=== PATIENT | male | born 1965 | race Caucasian/White ===

== ENCOUNTER 2020-09-22 08:16 | Outpatient (REF) | payer OTHER, SELFPAY ==
[2020-09-22 08:44] LABS: MANUAL DIFF FLAG NO
[2020-09-22 09:01] LABS: Estimated Average Glucose 105 mg/dL; Hemoglobin A1c % 5.3 %
[2020-09-22 09:05] LABS: Basophils Absolute Auto 0.1 X10*3/uL (0.0-0.2); Basophils Percent Auto 0.9 % (0-2); Eosinophils Absolute Auto 0.3 X10*3/uL (0.0-0.4); Eosinophils Percent Auto 4.8 % (0-4); Hematocrit 44.9 % (42-52); Hemoglobin 15.4 g/dl (14.0-18.0); Imm Gran Abs Auto 0.05 X10*3/uL (0.00-0.03); Imm Gran Pct Auto 0.9 % (0.0-0.4); Lymphocytes Absolute Auto 1.2 X10*3/uL (1.2-4.9); Lymphocytes Percent Auto 21.3 % (20-40); Mean Corpuscular HGB Conc 34.3 g/dl (31.0-36.0); Mean Corpuscular Hemoglobin 31.1 pg (27.0-33.0); Mean Corpuscular Volume 90.7 fL (80-98); Mean Platelet Volume 9.6 fL (9.4-12.4); Monocytes Absolute Auto 0.7 X10*3/uL (0.1-1.2); Monocytes Percent Auto 12.2 % (2-11); Neutrophils Absolute Auto 3.2 X10*3/uL (2.0-8.3); Neutrophils Percent Auto 59.9 % (45-73); Platelet Count 201 X10*3/uL (160-400); Red Blood Count 4.95 X10*6/uL (4.60-5.80); Red Cell Distribution Width 12.7 % (11.0-16.0); White Blood Count 5.4 X10*3/uL (4.8-10.8)
[2020-09-22 09:09] LABS: Alanine Aminotransferase 21 U/L (0-40); Albumin Level 4.5 g/dL (3.5-5.0); Alkaline Phosphatase 82 U/L (39-117); Anion Gap 14 (12-20); Aspartate Amino Transferase 22 U/L (5-37); Bilirubin Total 0.6 mg/dL (0.0-1.0); Blood Urea Nitrogen 22 mg/dL (9-16); Calcium 9.3 mg/dL (8.4-10.2); Carbon Dioxide 25 mmol/L (22-29); Chloride 102 mmol/L (96-108); Cholesterol 272 mg/dL; Estimated Glomerular Filt Rate > 60; Glucose Fasting 100 mg/dL (60-99); HDL Cholesterol 38 mg/dL; LDL Cholesterol Calculated 185 mg/dl; Potassium 4.4 mmol/l (3.3-5.1); Sodium 137 mmol/L (135-145); Total Protein 7.3 g/dL (6.5-8.0); Triglycerides 246 mg/dL
[2020-09-22 09:18] LABS: Creatinine Urine 129.98 mg/dL; Microalbumin Urine < 5.0 mg/L
[2020-09-22 09:29] LABS: Prostate Specific Antigen Scr 1.78 ng/mL (<0.05-4.0); TSH reflex Free T4 1.25 mIU/mL (0.32-4.0)
== END 2020-09-22 08:17 | disposition home or self-care (01) ==
LOC: HO.LAB 08:16
PROVIDERS: PCP Physician Assistant; Visit Provider Physician Assistant
DX: I10 Essential (primary) hypertension (principal); E66.09 Other obesity due to excess calories; Z12.5 Encounter for screening for malignant neoplasm of prostate; Z68.35 Body mass index [BMI] 35.0-35.9, adult
CPT/HCPCS: 36415; 80053; 80061; 82043; 83036; 84153; 84443; 85025

== ENCOUNTER 2021-01-15 09:44 | Outpatient (REF) | payer OTHER, SELFPAY ==
--- NOTE | ~2021-01-15 | XR_ITS ---
EXAMINATION: XR CHEST CLINICAL INFORMATION: Cough, shortness of breath COMPARISON: None TECHNIQUE: 2 views of the chest were obtained. FINDINGS: There is some subtle airspace opacity lower zone just below hilum and lateral to left cardiac border better appreciated on the frontal view. The remainder of the lungs are clear. The vascularity is normal. The costophrenic sulci are well-defined. The heart is normal in size. The hilar and mediastinal contours are normal. There are mild degenerative changes thoracic spine. XR/XR chest 2V IMPRESSION: Mild left lower zone airspace opacity possibly related to pneumonia. No effusion.
== END 2021-01-15 09:45 | disposition home or self-care (01) ==
LOC: HO.HMGCX 09:44
PROVIDERS: PCP Physician Assistant; Visit Provider Nurse Practitioner Family
DX: R05 Cough (principal)
CPT/HCPCS: 71046

== ENCOUNTER 2021-01-15 09:49 | Outpatient (REF) | payer OTHER, SELFPAY | END 2021-01-15 09:50 | disposition home or self-care (01) | LOC: HO.LAB 09:49 | PROVIDERS: Visit Provider Nurse Practitioner Family | DX: R05 Cough (principal); Z20.822 Contact with and (suspected) exposure to COVID-19 | CPT/HCPCS: 36415; U0003; U0005 ==

== ENCOUNTER 2023-03-07 07:36 | Outpatient (REF) | payer OTHER, SELFPAY ==
--- NOTE | ~2023-03-07 | XR_ITS ---
EXAMINATION: XR KNEE AP STANDING CLINICAL INFORMATION: Primary osteoarthritis of the knees COMPARISON: Right knee x-ray June 2008 TECHNIQUE: AP bilateral standing view of the knees was obtained. FINDINGS: Right: There are postsurgical changes from ACL repair. There is no fracture or dislocation. There is joint space narrowing at the medial lateral femoral tibial joints and osteophyte seen medially. Left: There are postsurgical changes from ACL repair. No acute fracture or dislocation. Well-corticated ossification adjacent to the lateral femoral condyle questionable for old fracture. Varus angulation. Arthritis at the femoral tibial joints with joint space narrowing and osteophyte formation, greatest medially. Slight medial subluxation of the distal femur with respect with respect to the proximal tibia. Question bipartite patella. XR/XR knee standing BI IMPRESSION: Bilateral arthritis, left greater than right. Postsurgical changes from bilateral ACL repair.
--- NOTE | ~2023-03-07 | XR_ITS ---
EXAMINATION: XR LUMBOSACRAL SPINE WITH OBLIQUES CLINICAL INFORMATION: Low back pain COMPARISON: None TECHNIQUE: AP, both oblique, and lateral views of the lumbar spine. Lateral view of the lumbosacral junction. FINDINGS: No fracture or dislocation. Mild curvature of the lumbar sacral spine to the right. Bone alignment is otherwise normal. Mild degenerative disc disease and spondylosis at T12-L1, L1-L2 and L3-L4. Lower lumbar spine facet arthritis. No pars defect is seen. XR/XR lumbar spine 4V min IMPRESSION: Scoliosis and multilevel degenerative changes.
[2023-03-07 09:01] LABS: Hemoglobin 13.9 g/dl (14.0-18.0); Mean Corpuscular HGB Conc 35.6 g/dl (31.0-36.0); Mean Corpuscular Hemoglobin 33.5 pg (27.0-33.0); Mean Platelet Volume 9.3 fL (9.4-12.4); Platelet Count 207 X10*3/uL (160-400); Red Blood Count 4.15 X10*6/uL (4.60-5.80); Red Cell Distribution Width 12.1 % (11.0-16.0); White Blood Count 4.9 X10*3/uL (4.8-10.8)
[2023-03-07 09:51] LABS: Alanine Aminotransferase 25 U/L (0-40); Albumin Level 4.2 g/dL (3.5-5.0); Alkaline Phosphatase 75 U/L (39-117); Anion Gap 13 (12-20); Aspartate Amino Transferase 28 U/L (5-37); Bilirubin Total 1.1 mg/dL (0.0-1.0); Blood Urea Nitrogen 20 mg/dL (9-16); Calcium 9.2 mg/dL (8.4-10.2); Carbon Dioxide 24 mmol/L (22-29); Chloride 105 mmol/L (96-108); Cholesterol 236 mg/dL; Estimated Glomerular Filt Rate > 60; Glucose Fasting 99 mg/dL (60-99); HDL Cholesterol 44 mg/dL; LDL Cholesterol Calculated 141 mg/dl; Sodium 138 mmol/L (135-145); Total Protein 6.6 g/dL (6.5-8.0); Triglycerides 256 mg/dL
[2023-03-07 10:02] LABS: Prostate Specific Antigen Scr 3.35 ng/mL (<0.05-4.0)
[2023-03-07 10:02] LABS: Creatinine Urine 113.09 mg/dL
== END 2023-03-07 07:37 | disposition home or self-care (01) ==
LOC: HO.LAB 07:36
PROVIDERS: PCP Physician Assistant; Visit Provider Physician Assistant
DX: Z12.5 Encounter for screening for malignant neoplasm of prostate (principal); I10 Essential (primary) hypertension; E78.2 Mixed hyperlipidemia; M54.40 Lumbago with sciatica, unspecified side; M17.0 Bilateral primary osteoarthritis of knee
CPT/HCPCS: 36415; 72110; 73565; 80053; 80061; 82043; 84153; 85027

== ENCOUNTER 2023-04-13 10:58 | Outpatient (REF) | payer OTHER, SELFPAY ==
--- NOTE | ~2023-04-13 | XR_ITS ---
EXAMINATION: Knee x-ray CLINICAL INFORMATION: Pain COMPARISON: Previous x-ray February 2023 TECHNIQUE: 2 views of each knee FINDINGS: Left: There are postsurgical changes from ACL repair. No fracture or dislocation. Arthritis at the patellofemoral and femoral tibial joint. Moderate to large effusion. Soft tissue calcification or ossification in the anterior superior soft tissues. Atherosclerotic disease. Right: Postsurgical changes from ACL repair. No fracture or dislocation. Arthritis at the femoral tibial and patellofemoral joints. No significant joint effusion. Atherosclerotic disease. XR/XR knee LT 2V IMPRESSION: Post ACL repair bilaterally. Bilateral arthritis, left greater than right. Left knee joint effusion.
--- NOTE | ~2023-04-13 | XR_ITS ---
EXAMINATION: Knee x-ray CLINICAL INFORMATION: Pain COMPARISON: Previous x-ray February 2023 TECHNIQUE: 2 views of each knee FINDINGS: Left: There are postsurgical changes from ACL repair. No fracture or dislocation. Arthritis at the patellofemoral and femoral tibial joint. Moderate to large effusion. Soft tissue calcification or ossification in the anterior superior soft tissues. Atherosclerotic disease. Right: Postsurgical changes from ACL repair. No fracture or dislocation. Arthritis at the femoral tibial and patellofemoral joints. No significant joint effusion. Atherosclerotic disease. XR/XR knee RT 2V IMPRESSION: Post ACL repair bilaterally. Bilateral arthritis, left greater than right. Left knee joint effusion.
== END 2023-04-13 10:59 | disposition home or self-care (01) ==
LOC: HO.HOSX 10:58
PROVIDERS: Visit Provider Orthopaedic Surgery
DX: M17.0 Bilateral primary osteoarthritis of knee (principal)
CPT/HCPCS: 73560

== ENCOUNTER 2023-10-28 11:40 | Outpatient (AMB) | payer OTHER, SELFPAY ==
--- NOTE | 2023-10-28 11:45 | MHC.PC.OV ---
Vital Signs 10/28/23 11:46 Height 5 ft 6 in Weight 204 lb 2 oz BMI 32.9 BP 172/96 H Blood Pressure Location Lt brachial Position Sitting Respiration 17 Pulse 105 H Pulse Source Pulse Oximeter Pulse Oximetry (%) 98 Oxygen Delivery Method Room Air Intake Visit Reasons: f/u HTN Commissioning Specialist Required: No Accompanied by: Self / Same As Patient Allergies lisinopril Adverse Reaction (Intermediate, Verified 10/28/23 11:53) Sweating Medication List - Last Reconciled 10/28/23 by Rod Paz PA-C acetaminophen ER 650 mg PO Q12H 15 days amlodipine 10 mg PO DAILY 90 days blood pressure test kit-large As directed ibuprofen 800 mg PO TID PRN losartan-hydrochlorothiazide 100-12.5 mg 1 tab PO DAILY 30 days trazodone 100 mg PO DAILY triamcinolone acetonide 0.5% 1 appl topical DAILY 30 days Tobacco use date assessed: 10/28/23 Dental Screening Dental Screen Date: 10/28/23 Did you have a dental visit in the last 12 months?: No Did you have a dental problem in the last 6 months where you did not have access to dental care?: No Was dental information given to patient?: Patient declined HPI f/u HTN HPI Details Patient is a 58-year-old male here today for follow-up visit. Patient has a past medical history significant for hypertension, psoriasis, obesity, anxiety and hyperlipidemia. Concern--> osteoarthritis of the knees. Has been getting cortisone injections in his knees. Has seen [facility] surgeons and [place] and is considering a total knee arthroplasty. .. Hypertension: Blood pressure is been difficult to control, today pressure elevated in office. He does monitor his blood pressure at home at times and reports 130s over 90. He denies any headaches, chest discomfort or dizziness. Plan: Will increase his hydrochlorothiazide dose, also rdered an ultrasound of both his kidneys to evaluate for renal artery stenosis /.. Obesity: Has been able to lose a few lb since last office visit, he does report changing his diet somewhat to reduce salt and carbohydrates. .. . Anxiety: Reports his anxiety has been elevated as of late due to financial issues. He would like to restart Wellbutrin as this has worked for his anxiety in the past.. [facility] Surgical History History of orthopedic surgery Family History Father No problems noted. Mother No problems noted. 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 1. Little interest or pleasure in doing things: not at all 2. Feeling down, depressed, or hopeless: not at all 3. Trouble falling or staying asleep, or sleeping too much: not at all 4. Feeling tired or having little energy: not at all 5. Poor appetite or overeating: not at all 6. Feeling bad about yourself - or that you are a failure or have let yourself or your family down: not at all 7. Trouble concentrating on things, such as reading the newspaper or watching television: not at all 8. Moving or speaking so slowly that other people could have noticed. Or the opposite - being so fidgety or restless that you have been moving around a lot more than usual: not at all 9. Thoughts that you would be better off or of hurting yourself in some way: not at all Total score: 0 Depression Screening Interpretation: Negative Depression Screening Done: Yes 42650 - PHQ-9 Billing: Yes Source: Developed by Drs. Juan Choudhary, Cynthia Huber, Roland Vega and colleagues, with an educational doreen from [employer]. Thrive Questionnaire Date Thrive assessed: 10/28/23 I am a: Patient What is your living situation today?: I have a steady place to live Within the past 12 months, did the food you bought not last and you didn't have the money to get more?: Never true Within the past 12 months, did you worry whether your food would run out before you got money to buy more?: Never true Do you have trouble paying for medicines?: No Do you have trouble getting transportation to medical appointments?: No Do you have trouble paying your heating and electricity bill?: No Do you have trouble taking care of your child, family member or friend?: No Do you have trouble with day-to-day activities such as bathing, preparing meals, shopping, managing finances, etc.?: No Are you currently unemployed and looking for a job?: No Are you interested in more education?: No Please select the resources that you would like help with: None Currently or been in a relationship where the following occur: no concerns reported AUDIT C Alcohol Use Questionnaire (AUDIT-C) 1. How often do you have a drink containing alcohol?: Never Total Score: 0 CHITO-7 AMB Questionnaire CHITO-7 Date CHITO - 7 assessed: 10/28/23 Feeling nervous, anxious, or on edge: 2 = More than half the days Not being able to stop or control worryin = Several days Worrying too much about different things: 2 = More than half the days Trouble relaxin = Several days Being so restless that it is hard to sit still: 0 = Not at all Becoming easily annoyed or irritable: 0 = Not at all Feeling afraid as if something awful might happen: 2 = More than half the days Total CHITO-7 score (0-4 normal; 5-9 mild; 10-14 moderate; 15-21 severe): 8 Source: Developed by Drs. Juan Choudhary, Cynthia Huber, Roland Vega and colleagues, with an educational doreen from [employer]. CHITO-7 Assessment Billing CHITO-7 Assessment Tool: CHITO-7 Assessment 08089 Review of Systems Const Denies headache(s) Eyes Denies loss of vision ENT Denies vertigo, Denies dizziness, Denies headache(s) and Denies sore throat Card Denies chest pain, Denies leg edema and Denies lightheadedness Resp Denies cough, Denies hemoptysis and Denies wheezing GI Denies abdominal pain, Denies melena, Denies constipation, Denies diarrhea and Denies vomiting Denies dysuria, Denies urinary frequency and Denies urinary urgency Musc Denies arthralgias, Denies joint swelling, Denies numbness and Denies tingling Neuro Denies Abnormal speech present, Denies behavioral changes, Denies vertigo, Denies dizziness, Denies headache(s), Denies loss of vision, Denies memory loss, Denies numbness and Denies tingling Psych Denies anxiety, Denies behavioral changes, Denies depression, Denies memory loss and Denies panic attacks Tho/Lymph Denies easy bleeding and Denies easy bruising Aller/Immun Denies wheezing Physical exam (Primary Care) Vital Signs: Last Vital Signs Pulse 105 H 10/28/23 11:46 Resp 17 10/28/23 11:46 BP 172/96 H 10/28/23 11:46 Pulse Ox 98 10/28/23 11:46 Oxygen Delivery Method Room Air 10/28/23 11:46 BMI result Body Mass Index 32.9 BMI Assessment/Plan discussion: High Tobacco/Smoking Status: Tobacco use Status Tobacco use date assessed 10/28/23 10/28/23 11:51 Patient Tobacco Use Status Former Tobacco user 10/28/23 11:51 Tobacco use type Cigarette 10/28/23 11:51 e-Cigarette/Vaping Use Never Used 10/28/23 11:51 PHQ-9: PHQ-9 Score PHQ-9: Total score 0 10/28/23 11:57 Depression Screening Interpretation: Negative Thrive Assessment: Date of Thrive Assessment Date Thrive assessed 10/28/23 10/28/23 11:51 Currently or been in a relationship where the following occur: no concerns reported Const Other: Obese General: healthy appearing, no acute distress, alert and awake Nutritional Appearance: well nourished Orientation/consciousness: oriented to person, oriented to place and oriented to time HENMT Ears: TM's normal bilaterally General nose exam: Normal nasal mucous membranes and turbinates present Eyes Conjunctivae: conjunctivae normal Sclerae: sclerae normal Pupils: Equal, round and reactive pupils present Neck Neck: Yes no lymphadenopathy and Yes no JVD Thyroid: Thyroid normal Carotids: no bruits Resp Effort & Inspection: normal respiratory effort and not tachypneic Auscultation: no crackles, no rales, no rhonchi and no wheezes Cardio Rate: regular rate Rhythm: regular rhythm Heart sounds: no murmurs and normal S1 and S2 GI Palpation (GI): Soft to palpation, nontender, no hepatomegaly and no splenomegaly Auscultation: normal bowel sounds Skin General skin exam: no rashes or lesions noted and dry skin Neuro General: oriented to person, oriented to place and oriented to time Cranial nerves: Yes Equal, round and reactive pupils present Speech: No Abnormal speech present Gait exam (Neuro): Normal gait present Motor exam (neuro): no tremor noted Extrem Right upper extremity: full ROM Left upper extremity: full ROM Right lower extremity: full ROM; no edema Left lower extremity: full ROM; no edema Psych Mental Status: mental status grossly normal Speech and movement: Normal speech and movement present Affect: normal affect Attitude: cooperative Thought process: Normal thought process present Assessment and Plan Assessment & Plan (1) HTN (hypertension): Code(s): I10 - Essential (primary) hypertension Qualifiers: Hypertension type: essential hypertension Qualified Code(s): I10 - Essential (primary) hypertension Plan: Patient blood pressure remains elevated today in office. He is asymptomatic. He reports checking his blood pressure occasionally at home and reports 140s over 90s at home. I believe there is a element of mental white coat hypertension here as well as patient is fairly anxious. I will increase his hydrochlorothiazide dose to 25. Advised to continue monitoring blood pressure at home. Will try to set patient up for bilateral renal ultrasound to evaluate for renal artery stenosis. -->Also has risk factors for obstructive sleep apnea and advised a sleep study though he would like to hold off on ordering this for now. (2) HLD (hyperlipidemia): Code(s): E78.5 - Hyperlipidemia, unspecified Qualifiers: Hyperlipidemia type: mixed hyperlipidemia Qualified Code(s): E78.2 - Mixed hyperlipidemia Plan: Patient's history of borderline high total cholesterol, continues to try to work on lifestyle modifications on reducing his high cholesterol. Will recheck lipid panel with goal LDL to her remain below 160 (3) Obese: Code(s): E66.9 - Obesity, unspecified Qualifiers: Body mass index: BMI 35.0-35.9 Obesity classification: adult class 2 (BMI 35 - 39.9) Obesity type: due to excess calories Serious obesity comorbidity presence: without serious comorbidity Qualified Code(s): E66.09 - Other obesity due to excess calories; Z68.35 - Body mass index [BMI] 35.0-35.9, adult Plan: Patient does understand his BMI is over 30 will work on being more physically active and adapting to better eating habits to reduce his weight (4) CHITO (generalized anxiety disorder): Code(s): F41.1 - Generalized anxiety disorder Plan: Patient's CHITO-7 score positive for mild anxiety which has been existing condition for him. He would like to restart Wellbutrin as his anxiety has been elevated as of late. Has financial issues. He does good support with his family and AA sponsor. Not interested in speaking with mental health therapist at this time.. (5) Osteoarthritis of left knee: Code(s): M17.12 - Unilateral primary osteoarthritis, left knee Qualifiers: Osteoarthritis type: primary Qualified Code(s): M17.12 - Unilateral primary osteoarthritis, left knee Plan: Patient being followed by orthopedic surgeon. Has been getting cortisone injections in his knees with only minimal relief. He is considering a total arthroplasty. Orders: Orders Comprehensive [place]. Panel Fast Today I10 - Essential (primary) hypertension US renal doppler Today I10 - Essential (primary) hypertension Lipid Panel Today E78.2 - Mixed hyperlipidemia Microalbumin, Random (w Creat) Today I10 - Essential (primary) hypertension Prostate Specific Antigen Scr Today I10 - Essential (primary) hypertension, Z12.5 - Encounter for screening for malignant neoplasm of prostate Medications: New bupropion HCl (Wellbutrin XL) 150 mg PO QAM 30 days 30 tabs 3RF F41.1 - Generalized anxiety disorder losartan-hydrochlorothiazide 100-25 mg 1 tab PO DAILY 90 days 90 tabs 0RF I10 - Essential (primary) hypertension Refilled ibuprofen 800 mg PO TID PRN 90 caps 1RF for pain M17.10 - Unilateral primary osteoarthritis, unspecified knee Discontinued losartan-hydrochlorothiazide 100-12.5 mg Discontinued Reason: Doctor's Order 1 tab PO DAILY 30 days 30 tabs 3RF I10 - Essential (primary) hypertension Coding Level of Care Code Est Pt Level 4 (33278) Diagnoses Essential hypertension I10 Hypertension type: essential hypertension Mixed hyperlipidemia E78.2 Hyperlipidemia type: mixed hyperlipidemia Class 2 obesity due to excess calories without serious comorbidity with body mass index (BMI) of 35.0 to 35.9 in adult E66.09; Z68.35 Body mass index: BMI 35.0-35.9 Obesity classification: adult class 2 (BMI 35 - 39.9) Obesity type: due to excess calories Serious obesity comorbidity presence: without serious comorbidity CHITO (generalized anxiety disorder) F41.1 Primary osteoarthritis of left knee M17.12 Osteoarthritis type: primary Additional Codes CHITO-7 Assessment Billing - CHITO-7 Assessment Tool: CHITO-7 Assessment 91009 ([id number])
[2023-10-28 11:46] VITALS: BP 172/96; PULSE 105; RESP 17; O2SAT 98; BMI 32.9
== END 2023-10-28 12:15 | disposition home or self-care (01) ==
PROVIDERS: PCP Physician Assistant; Visit Provider Physician Assistant
DX: I10 Essential (primary) hypertension (principal); E78.2 Mixed hyperlipidemia; E66.09 Other obesity due to excess calories; Z68.35 Body mass index [BMI] 35.0-35.9, adult; F41.1 Generalized anxiety disorder; M17.12 Unilateral primary osteoarthritis, left knee
CPT/HCPCS: 99214

== ENCOUNTER 2023-12-18 07:40 | Outpatient (REF) | payer OTHER, SELFPAY ==
--- NOTE | ~2023-12-18 | US_ITS ---
EXAMINATION: ULTRASOUND RENAL WITH DOPPLER CLINICAL INFORMATION: Hypertension. COMPARISON: None. TECHNIQUE: Real-time grayscale, color Doppler, and duplex Doppler evaluation of the kidneys and renal vasculature was performed. FINDINGS: RENAL MEASUREMENTS: Right: 11.7 x 6.4 x 4.6 cm (Sag x AP x TV) Left: 12.4 x 5.1 x 6.3 cm (Sag x AP x TV) The renal parenchyma appears normal. No hydronephrosis or nephrolithiasis. DOPPLER INTERROGATION: AORTA: Mid aorta: 109 cm/sec RIGHT MAIN RENAL ARTERY: Proximal: 86 cm/sec Mid: 198 cm/sec Distal: 71 cm/sec LEFT MAIN RENAL ARTERY: Proximal: 91 cm/sec Mid: 88 cm/sec Distal: 87 cm/sec RENAL-AORTIC RATIO (RAR): Right: Not calculated due to mid aortic velocity outside of range 40-100 cm/s making RAR inaccurate. Left: Not calculated due to mid aortic velocity outside of range 40-100 cm/s making RAR inaccurate. SEGMENTAL RESISTIVE INDICES: Right: 0.63-0.69 Left: 0.66-0.72 RENAL VEINS: Right: Patent with normal waveform. Left: Patent with normal waveform. US/US renal BI IMPRESSION: Elevated velocity in the mid right renal artery raises the possibility of underlying stenosis. This location is atypical for atherosclerotic disease and may relate to another entity such as fibromuscular dysplasia. Recommend further evaluation with CTA of the abdomen and pelvis without and with intravenous contrast.
--- NOTE | ~2023-12-18 | US_ITS ---
EXAMINATION: ULTRASOUND RENAL WITH DOPPLER CLINICAL INFORMATION: Hypertension. COMPARISON: None. TECHNIQUE: Real-time grayscale, color Doppler, and duplex Doppler evaluation of the kidneys and renal vasculature was performed. FINDINGS: RENAL MEASUREMENTS: Right: 11.7 x 6.4 x 4.6 cm (Sag x AP x TV) Left: 12.4 x 5.1 x 6.3 cm (Sag x AP x TV) The renal parenchyma appears normal. No hydronephrosis or nephrolithiasis. DOPPLER INTERROGATION: AORTA: Mid aorta: 109 cm/sec RIGHT MAIN RENAL ARTERY: Proximal: 86 cm/sec Mid: 198 cm/sec Distal: 71 cm/sec LEFT MAIN RENAL ARTERY: Proximal: 91 cm/sec Mid: 88 cm/sec Distal: 87 cm/sec RENAL-AORTIC RATIO (RAR): Right: Not calculated due to mid aortic velocity outside of range 40-100 cm/s making RAR inaccurate. Left: Not calculated due to mid aortic velocity outside of range 40-100 cm/s making RAR inaccurate. SEGMENTAL RESISTIVE INDICES: Right: 0.63-0.69 Left: 0.66-0.72 RENAL VEINS: Right: Patent with normal waveform. Left: Patent with normal waveform. US/US renal doppler IMPRESSION: Elevated velocity in the mid right renal artery raises the possibility of underlying stenosis. This location is atypical for atherosclerotic disease and may relate to another entity such as fibromuscular dysplasia. Recommend further evaluation with CTA of the abdomen and pelvis without and with intravenous contrast.
[2023-12-18 09:56] LABS: Alanine Aminotransferase 19 U/L (0-40); Albumin Level 4.4 g/dL (3.5-5.0); Alkaline Phosphatase 62 U/L (39-117); Anion Gap 15 (12-20); Aspartate Amino Transferase 21 U/L (5-37); Bilirubin Total 0.9 mg/dL (0.0-1.0); Blood Urea Nitrogen 19 mg/dL (9-16); Calcium 9.5 mg/dL (8.4-10.2); Carbon Dioxide 24 mmol/L (22-29); Chloride 103 mmol/L (96-108); Cholesterol 277 mg/dL (<200); Estimated Glomerular Filt Rate > 60; Glucose Fasting 90 mg/dL (60-99); HDL Cholesterol 54 mg/dL (>40); LDL Cholesterol Calculated 175 mg/dL (<100); Potassium 4.3 mmol/L (3.3-5.1); Sodium 138 mmol/L (135-145); Total Protein 7.2 g/dL (6.5-8.0); Triglycerides 241 mg/dL (<150)
[2023-12-18 10:18] LABS: Prostate Specific Antigen Scr 3.27 ng/mL (<0.05-4.0)
[2023-12-18 10:53] LABS: Microalbum/Creatinine Ratio Ur 11.4 ug/mg cr (<30)
== END 2023-12-18 07:41 | disposition home or self-care (01) ==
LOC: HO.US 07:40
PROVIDERS: PCP Physician Assistant; Visit Provider Physician Assistant
DX: Z12.5 Encounter for screening for malignant neoplasm of prostate (principal); E78.2 Mixed hyperlipidemia; I10 Essential (primary) hypertension
CPT/HCPCS: 36415; 76775; 80053; 80061; 82043; 82570; 84153; 93975

== ENCOUNTER 2024-02-06 09:24 | Outpatient (REF) | payer OTHER, SELFPAY ==
[2024-02-06 10:22] LABS: Anion Gap 14 (12-20); Blood Urea Nitrogen 23 mg/dL (9-16); Calcium 9.5 mg/dL (8.4-10.2); Carbon Dioxide 24 mmol/L (22-29); Chloride 101 mmol/L (96-108); Estimated Glomerular Filt Rate > 60; Glucose Random 100 mg/dL (60-115); Potassium 4.1 mmol/L (3.3-5.1); Sodium 135 mmol/L (135-145)
== END 2024-02-06 09:25 | disposition home or self-care (01) ==
LOC: HO.LAB 09:24
PROVIDERS: PCP Physician Assistant; Visit Provider Physician Assistant
DX: I70.1 Atherosclerosis of renal artery (principal)
CPT/HCPCS: 36415; 80048

== ENCOUNTER 2024-02-09 14:54 | Outpatient (REF) | payer OTHER, SELFPAY ==
--- NOTE | ~2024-02-09 | CT_ITS ---
EXAMINATION: CT ANGIOGRAM ABDOMEN AND PELVIS CLINICAL INFORMATION: Atherosclerosis of the renal artery, renal ultrasound demonstrating elevated velocity in the mid right renal artery COMPARISON: Renal duplex on 12/18/2023 TECHNIQUE: Multiple axial images were obtained through the abdomen and pelvis following the administration of 80 mL of Omnipaque 350 intravenous contrast. MIPS images were created and reviewed. This CT examination was performed using dose optimization techniques as appropriate, variously including the following: *Automated exposure control *Adjustment of mA and/or kV according to patient size (this includes techniques or standardized protocols for targeted exams where dose is matched to indication/reason for exam; i.e. extremities or head) *Use of iterative reconstruction technique DLP: 280 mGy-cm FINDINGS: VASCULAR: ABDOMINAL AORTA: The abdominal aorta is normal in caliber. No significant atherosclerotic disease.. RIGHT ILIAC ARTERY: Normal in caliber. No atherosclerotic disease. LEFT ILIAC ARTERY: Normal in caliber. No atherosclerotic disease.. CELIOMESENTERIC ARTERIES: Normal in caliber. No atherosclerotic disease.. RENAL ARTERIES: There are 2 right renal arteries. The superior renal artery is dominant. Both of these are patent. There is a patent single left renal artery.. NONVASCULAR: Lung Bases: The visualized lung bases are unremarkable. Liver, Gallbladder and Biliary Tree: The liver is normal in size, shape, and attenuation. No focal hepatic lesion or biliary ductal dilatation is present. The gallbladder is unremarkable with no evidence of radiopaque gallstones, gallbladder wall thickening, or obvious pericholecystic inflammatory changes. Pancreas: Unremarkable. Spleen: Unremarkable. Adrenal Glands: Unremarkable. Kidneys and Ureters: There are 2 3 mm right mid-upper pole nonobstructing calculi. There is a 5 mm left lower pole nonobstructing calculus. The kidneys are normal in size, shape, and attenuation. No hydronephrosis, hydroureter. No perinephric stranding. Bladder: Unremarkable. Gastrointestinal Tract: The small and large bowel are unremarkable. Colonic diverticulosis is noted. Abdominal Wall: Small fat-containing umbilical hernia. Lymph Nodes: Normal. Pelvic Viscera: Unremarkable. Osseous Structures: Mild degenerative disease of the lumbar spine. CT/CT angio abdomen pelvis IMPRESSION: 1. Bilateral nonobstructing renal calculi. 2. No hydronephrosis or hydroureter. 3. No significant atherosclerotic disease. Patent bilateral renal arteries. Fleischner guidelines were followed.
[2024-02-09] MEDS: Barium Sulfate Oral (Mocha) 450 ML ORAL.SUSP 900 ML PO (15:29)
[2024-02-09] MEDS: iohexoL 350 MG/ML 100 ML INFUS..BTL IV (15:29)
== END 2024-02-09 14:55 | disposition home or self-care (01) ==
LOC: HO.CT 14:54
PROVIDERS: PCP Physician Assistant; Visit Provider Physician Assistant
DX: I70.1 Atherosclerosis of renal artery (principal)
CPT/HCPCS: 74174; Q9967

== ENCOUNTER 2024-05-12 09:27 | Outpatient (AMB) | payer BC, SELFPAY ==
--- NOTE | 2024-05-12 09:38 | MHC.PC.OV ---
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 Accompanied by: Self / Same As Patient Allergies lisinopril Adverse Reaction (Intermediate, Verified 05/12/24 09:45) Sweating Medication List - Last Reconciled 05/12/24 by Rod Paz PA-C acetaminophen ER 650 mg PO Q12H 15 days amlodipine 10 mg PO DAILY 90 days atorvastatin 20 mg PO DAILY 90 days blood pressure test kit-large As directed bupropion HCl XL (Wellbutrin XL) 150 mg PO QAM 30 days ibuprofen 800 mg PO TID PRN losartan-hydrochlorothiazide 100-25 mg 1 tab PO DAILY 90 days trazodone 100 mg PO DAILY triamcinolone acetonide 0.5% 1 appl topical DAILY 30 days Tobacco use date assessed: 10/28/23 Dental Screening Dental Screen Date: 10/28/23 HPI f/u HTN HPI Details Patient is a 58-year-old male here today for follow-up visit. Patient has a past medical history significant for hypertension, psoriasis, obesity, anxiety and hyperlipidemia. Concern--> osteoarthritis of the knees. Has been getting cortisone injections in his knees. Has seen [facility] and [place] and is considering a total knee arthroplasty. .. Hypertension: Blood pressure is been difficult to control, today pressure elevated in office. He does monitor his blood pressure at home at times and reports 130s over 90. He denies any headaches, chest discomfort or dizziness. Underwent renal artery ultrasound and CTA of abdomen without any significant evidence of renal artery stenosis. /.. Obesity: Has lost weight since last office visit. .. Hyperlipidemia: Noted elevated total cholesterol and LDL most recent labs. He was to start atorvastatin 20 mg though did not get from pharmacy. Will start this medication and recheck his lipid panel in 4 months. Goal LDL to be below 160 PFSH Surgical History History of orthopedic surgery Family History Father No problems noted. Mother No problems noted. 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 Juan Choudhary, Cynthia Huber, Roland Vega and colleagues, with an educational doreen from [employer]. Review of Systems Const Denies headache(s) Eyes Denies loss of vision ENT Denies vertigo, Denies dizziness, Denies headache(s) and Denies sore throat Card Denies chest pain, Denies leg edema and Denies lightheadedness Resp Denies cough, Denies hemoptysis and Denies wheezing GI Denies abdominal pain, Denies melena, Denies constipation, Denies diarrhea and Denies vomiting Denies dysuria, Denies urinary frequency and Denies urinary urgency Musc Denies arthralgias, Denies joint swelling, Denies numbness and Denies tingling Neuro Denies Abnormal speech present, Denies behavioral changes, Denies vertigo, Denies dizziness, Denies headache(s), Denies loss of vision, Denies memory loss, Denies numbness and Denies tingling Psych Denies anxiety, Denies behavioral changes, Denies depression, Denies memory loss and Denies panic attacks Tho/Lymph Denies easy bleeding and Denies easy bruising Aller/Immun Denies wheezing Physical exam (Primary Care) Vital Signs: Last Vital Signs Pulse 80 05/12/24 09:39 BP 152/96 H 05/12/24 09:39 Pulse Ox 97 05/12/24 09:39 Oxygen Delivery Method Room Air 05/12/24 09:39 BMI result Body Mass Index 31.8 Tobacco/Smoking Status: Tobacco use Status Tobacco use date assessed 10/28/23 05/12/24 09:38 Patient Tobacco Use Status Former Tobacco user 05/12/24 09:38 Tobacco use type Cigarette 05/12/24 09:38 e-Cigarette/Vaping Use Never Used 05/12/24 09:38 Thrive Assessment: Date of Thrive Assessment Date Thrive assessed 10/28/23 05/12/24 09:38 Const General: healthy appearing, no acute distress, alert and awake Nutritional Appearance: well nourished Orientation/consciousness: oriented to person, oriented to place and oriented to time HENMT Ears: TM's normal bilaterally General nose exam: Normal nasal mucous membranes and turbinates present Eyes Conjunctivae: conjunctivae normal Sclerae: sclerae normal Pupils: Equal, round and reactive pupils present Neck Neck: Yes no lymphadenopathy and Yes no JVD Thyroid: Thyroid normal Carotids: no bruits Resp Effort & Inspection: normal respiratory effort and not tachypneic Auscultation: no crackles, no rales, no rhonchi and no wheezes Cardio Rate: regular rate Rhythm: regular rhythm Heart sounds: no murmurs and normal S1 and S2 GI Palpation (GI): Soft to palpation, nontender, no hepatomegaly and no splenomegaly Auscultation: normal bowel sounds Skin General skin exam: no rashes or lesions noted and dry skin Neuro General: oriented to person, oriented to place and oriented to time Cranial nerves: Yes Equal, round and reactive pupils present Speech: No Abnormal speech present Gait exam (Neuro): Normal gait present Motor exam (neuro): no tremor noted Extrem Right upper extremity: full ROM Left upper extremity: full ROM Right lower extremity: full ROM; no edema Left lower extremity: full ROM; no edema Psych Mental Status: mental status grossly normal Speech and movement: Normal speech and movement present Affect: normal affect Attitude: cooperative Thought process: Normal thought process present Assessment and Plan Assessment & Plan (1) HTN (hypertension): Code(s): I10 - Essential (primary) hypertension Qualifiers: Hypertension type: essential hypertension Qualified Code(s): I10 - Essential (primary) hypertension Plan: Patient blood pressure remains elevated today in office. He is asymptomatic. He reports that home blood pressures are 120s to 130 systolic. He reports checking his blood pressure occasionally at home and reports 140s over 90s at home. I believe there is a element of mental white coat hypertension here as well as patient is fairly anxious. CTA of abdomen without any notable renal artery stenosis. (2) HLD (hyperlipidemia): Code(s): E78.5 - Hyperlipidemia, unspecified Qualifiers: Hyperlipidemia type: mixed hyperlipidemia Qualified Code(s): E78.2 - Mixed hyperlipidemia Plan: Most recent lipid panel showing elevated total cholesterol and LDL. He was to start atorvastatin 20 mg though has never got this from the pharmacy. Will send statin to restart. Will follow-up on his lipid panel in 4 months. Will recheck lipid panel with goal LDL to her remain below 160 (3) Osteoarthritis of left knee: Code(s): M17.12 - Unilateral primary osteoarthritis, left knee Qualifiers: Osteoarthritis type: primary Qualified Code(s): M17.12 - Unilateral primary osteoarthritis, left knee Plan: Patient being followed by orthopedic surgeon. Has been getting cortisone injections in his knees with only minimal relief. He is considering a total arthroplasty. Orders: Orders Lipid Panel Today E78.2 - Mixed hyperlipidemia Complete Blood Count no Diff Today I10 - Essential (primary) hypertension Comprehensive [place]. Panel Fast Today I10 - Essential (primary) hypertension Medications: Refilled atorvastatin 20 mg PO DAILY 90 days 90 tabs 1RF E78.2 - Mixed hyperlipidemia Patient Instructions: Goal: Blood pressure to be below 140/90, goal LDL to be below 160 Barriers: Adherence to physical activity and healthy eating habits Coding Level of Care Code Est Pt Level 4 (95777) Diagnoses Essential hypertension I10 Hypertension type: essential hypertension Mixed hyperlipidemia E78.2 Hyperlipidemia type: mixed hyperlipidemia Primary osteoarthritis of left knee M17.12 Osteoarthritis type: primary
[2024-05-12 09:39] VITALS: BP 152/96; PULSE 80; O2SAT 97; BMI 31.8
== END 2024-05-12 10:07 | disposition home or self-care (01) ==
PROVIDERS: PCP Physician Assistant; Visit Provider Physician Assistant
DX: I10 Essential (primary) hypertension (principal); E78.2 Mixed hyperlipidemia; M17.12 Unilateral primary osteoarthritis, left knee
CPT/HCPCS: 99214

== ENCOUNTER 2024-09-10 07:22 | Outpatient (REF) | payer BC, SELFPAY ==
[2024-09-10 07:47] LABS: Hematocrit 37.9 % (42.0-52.0); Hemoglobin 13.9 g/dl (14.0-18.0); Mean Corpuscular HGB Conc 36.7 g/dl (31.0-36.0); Mean Platelet Volume 8.8 fL (9.4-12.4); Platelet Count 228 X10*3/uL (160-400); Red Blood Count 4.21 X10*6/uL (4.60-5.80); Red Cell Distribution Width 12.7 % (11.0-16.0); White Blood Count 7.1 X10*3/uL (4.8-10.8)
[2024-09-10 08:20] LABS: Alanine Aminotransferase 13 U/L (0-40); Albumin Level 4.3 g/dL (3.5-5.0); Alkaline Phosphatase 74 U/L (39-117); Anion Gap 15 (12-20); Aspartate Amino Transferase 24 U/L (5-37); Bilirubin Total 0.7 mg/dL (0.0-1.0); Blood Urea Nitrogen 18 mg/dL (9-16); Calcium 9.3 mg/dL (8.4-10.2); Carbon Dioxide 23 mmol/L (22-29); Chloride 104 mmol/L (96-108); Cholesterol 223 mg/dL (<200); Estimated Glomerular Filt Rate > 60; Glucose Fasting 106 mg/dL (60-99); HDL Cholesterol 50 mg/dL (>40); LDL Cholesterol Calculated 119 mg/dL (<100); Potassium 3.1 mmol/L (3.3-5.1); Sodium 139 mmol/L (135-145); Total Protein 6.8 g/dL (6.5-8.0); Triglycerides 274 mg/dL (<150)
== END 2024-09-10 07:23 | disposition home or self-care (01) ==
LOC: HO.LAB 07:22
PROVIDERS: PCP Physician Assistant; Visit Provider Physician Assistant
DX: I10 Essential (primary) hypertension (principal); E78.2 Mixed hyperlipidemia
CPT/HCPCS: 36415; 80053; 80061; 85027

== ENCOUNTER 2024-09-13 15:38 | Outpatient (AMB) | payer BC, SELFPAY ==
[2024-09-13 15:49] VITALS: BP 140/74; PULSE 90; O2SAT 97; BMI 32.6
--- NOTE | 2024-09-13 15:49 | MHC.PC.OV ---
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 Accompanied by: Self / Same As Patient Allergies lisinopril Adverse Reaction (Intermediate, Verified 09/13/24 15:52) Sweating Medication List - Last Reconciled 09/13/24 by Rod Paz PA-C acetaminophen ER 650 mg PO Q12H 15 days amlodipine 10 mg PO DAILY 90 days atorvastatin 20 mg PO DAILY 90 days blood pressure test kit-large As directed bupropion HCl XL (Wellbutrin XL) 150 mg PO QAM 30 days ibuprofen 800 mg PO TID PRN losartan-hydrochlorothiazide 100-25 mg 1 tab PO DAILY 90 days trazodone 100 mg PO DAILY triamcinolone acetonide 0.5% 1 appl topical DAILY 30 days Tobacco use date assessed: 10/28/23 Dental Screening Dental Screen Date: 10/28/23 HPI f/u HTN/ HLD HPI Details Patient is a 58-year-old male here today for follow-up visit. Patient has a past medical history significant for hypertension, psoriasis, obesity, anxiety and hyperlipidemia. Concern--> osteoarthritis of the knees. Has been getting cortisone injections in his knees. Has seen [facility] and [place] and is considering a total knee arthroplasty in October or November of 2024. .. Hypertension: Blood pressure is been difficult to control, today pressure improved today in office. He does monitor his blood pressure at home at times and reports 130s over 90. He denies any headaches, chest discomfort or dizziness. Underwent renal artery ultrasound and CTA of abdomen without any significant evidence of renal artery stenosis. /.. .. Hyperlipidemia: Most recent lipid panel improved. He has started atorvastatin 20 mg.. Laboratory Tests 12/18/23 02/06/24 09/10/24 09:05 09:36 07:40 Hgb 13.9 L Hct 37.9 L Potassium 4.1 3.1 L D Cholesterol 277 H 223 H LDL Cholesterol, C alc 175 H 119 H PFSH Surgical History History of orthopedic surgery Family History Father No problems noted. Mother No problems noted. 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 Juan Choudhary, Cynthia Huber, Roland Vega and colleagues, with an educational doreen from [employer]. Review of Systems Const Denies headache(s) Eyes Denies loss of vision ENT Denies vertigo, Denies dizziness, Denies headache(s) and Denies sore throat Card Denies chest pain, Denies leg edema and Denies lightheadedness Resp Denies cough, Denies hemoptysis and Denies wheezing GI Denies abdominal pain, Denies melena, Denies constipation, Denies diarrhea and Denies vomiting Denies dysuria, Denies urinary frequency and Denies urinary urgency Musc Denies arthralgias, Denies joint swelling, Denies numbness and Denies tingling Neuro Denies Abnormal speech present, Denies behavioral changes, Denies vertigo, Denies dizziness, Denies headache(s), Denies loss of vision, Denies memory loss, Denies numbness and Denies tingling Psych Denies anxiety, Denies behavioral changes, Denies depression, Denies memory loss and Denies panic attacks Tho/Lymph Denies easy bleeding and Denies easy bruising Aller/Immun Denies wheezing Physical exam (Primary Care) Vital Signs: Last Vital Signs Pulse 90 09/13/24 15:49 BP 140/74 H 09/13/24 15:49 Pulse Ox 97 09/13/24 15:49 Oxygen Delivery Method Room Air 09/13/24 15:49 BMI result Body Mass Index 32.6 Tobacco/Smoking Status: Tobacco use Status Tobacco use date assessed 10/28/23 09/13/24 15:50 Patient Tobacco Use Status Former Tobacco user 09/13/24 15:50 Tobacco use type Cigarette 09/13/24 15:50 e-Cigarette/Vaping Use Never Used 09/13/24 15:50 Thrive Assessment: Date of Thrive Assessment Date Thrive assessed 10/28/23 09/13/24 15:50 Const General: healthy appearing, no acute distress, alert and awake Nutritional Appearance: well nourished Orientation/consciousness: oriented to person, oriented to place and oriented to time HENMT Ears: TM's normal bilaterally General nose exam: Normal nasal mucous membranes and turbinates present Eyes Conjunctivae: conjunctivae normal Sclerae: sclerae normal Pupils: Equal, round and reactive pupils present Neck Neck: Yes no lymphadenopathy and Yes no JVD Thyroid: Thyroid normal Carotids: no bruits Resp Effort & Inspection: normal respiratory effort and not tachypneic Auscultation: no crackles, no rales, no rhonchi and no wheezes Cardio Rate: regular rate Rhythm: regular rhythm Heart sounds: no murmurs and normal S1 and S2 GI Palpation (GI): Soft to palpation, nontender, no hepatomegaly and no splenomegaly Auscultation: normal bowel sounds Skin General skin exam: no rashes or lesions noted and dry skin Neuro General: oriented to person, oriented to place and oriented to time Cranial nerves: Yes Equal, round and reactive pupils present Speech: No Abnormal speech present Gait exam (Neuro): Normal gait present Motor exam (neuro): no tremor noted Extrem Right upper extremity: full ROM Left upper extremity: full ROM Right lower extremity: full ROM; no edema Left lower extremity: full ROM; no edema Psych Mental Status: mental status grossly normal Speech and movement: Normal speech and movement present Affect: normal affect Attitude: cooperative Thought process: Normal thought process present Office Procedures Flu Questionnaire Does the patient have a severe egg allergy?: No Immunizations Fluarix Triv [id number] (PF) 45 mcg (15 mcg x 3)/0.5 mL IM syringe Performing Provider: Rod Paz PA-C [facility] [place] [facility] Documented (not given) by: JERICHO Lombardi on 09/13/24 15:50 Reason Not Given: Patient Refused Coding Level of Care Code Est Pt Level 4 (44552) Diagnoses Essential hypertension I10 Hypertension type: essential hypertension Mixed hyperlipidemia E78.2 Hyperlipidemia type: mixed hyperlipidemia Renal artery stenosis I70.1 Primary osteoarthritis of both knees M17.0 Osteoarthritis type: primary Laterality: bilateral Assessment & Plan Assessment & Plan (1) HTN (hypertension): Code(s): I10 - Essential (primary) hypertension Category: Medical Qualifiers: Hypertension type: essential hypertension Qualified Code(s): I10 - Essential (primary) hypertension Plan: Patient's blood pressure seems to have improved though still slightly borderline high. He is asymptomatic without any chest discomfort, dizziness or headaches. Does admit to taking NSAIDs on a nearly everyday basis due to his significant arthritis in his knees which may be causing his blood pressure elevation. Advised on taking more Tylenol than NSAID.. Will continue current doses of antihypertensive medication as he is on highest doses of his medication. Goal blood pressures to be below 140/90 (2) HLD (hyperlipidemia): Code(s): E78.5 - Hyperlipidemia, unspecified Category: Medical Qualifiers: Hyperlipidemia type: mixed hyperlipidemia Qualified Code(s): E78.2 - Mixed hyperlipidemia Plan: Most recent lipid panel showing improvement in his total cholesterol and LDL. He will continue current dose of atorvastatin 20 mg. Advised to continue on lifestyle and dietary modifications. Goal LDL is to remain below 130 (3) Renal artery stenosis: Code(s): I70.1 - Atherosclerosis of renal artery Category: Medical Plan: Previous ultrasound was concerning for renal artery stenosis in the setting of uncontrolled blood pressure. Though CT abdomen with contrast did not show any significant renal artery stenosis. (4) Knee osteoarthritis: Code(s): M17.10 - Unilateral primary osteoarthritis, unspecified knee Category: Medical Qualifiers: Osteoarthritis type: primary Laterality: bilateral Qualified Code(s): M17.0 - Bilateral primary osteoarthritis of knee Plan: Patient being followed by orthopedic surgeons in [place]. He anticipates getting a total knee arthroplasty early in 2024 Plan Goal: Blood pressure to be below 140/90, LDL to remain below 130 Barriers: Adherence to physical activity and healthy eating habits Orders: Orders Influenza [id number] Immunization 09/13/24 Z23 - Encounter for immunization Lipid Panel 6 Months E78.2 - Mixed hyperlipidemia Prostate Specific Antigen Scr 6 Months E78.2 - Mixed hyperlipidemia, Z12.5 - Encounter for screening for malignant neoplasm of prostate Complete Blood Count no Diff 6 Months I10 - Essential (primary) hypertension Comprehensive [place]. Panel Fast 6 Months I10 - Essential (primary) hypertension Microalbumin, Random (w Creat) 6 Months I10 - Essential (primary) hypertension
== END 2024-09-13 16:08 | disposition home or self-care (01) ==
PROVIDERS: PCP Physician Assistant; Visit Provider Physician Assistant
DX: I10 Essential (primary) hypertension (principal); E78.2 Mixed hyperlipidemia; I70.1 Atherosclerosis of renal artery; M17.0 Bilateral primary osteoarthritis of knee

== ENCOUNTER → 2024-09-13 15:38 | Outpatient (BNVA) | payer BC, SELFPAY | PROVIDERS: PCP Physician Assistant; Visit Provider Physician Assistant | DX: I10 Essential (primary) hypertension (principal); E78.2 Mixed hyperlipidemia; I70.1 Atherosclerosis of renal artery; M17.0 Bilateral primary osteoarthritis of knee; Z79.899 Other long term (current) drug therapy | CPT/HCPCS: 90471 ==

== ENCOUNTER 2025-05-03 14:50 | Outpatient (AMB) | payer BC, SELFPAY ==
--- OUTSIDE RECORDS SUMMARY | 2024-01-06 11:00 | XMS_ITS ---
Author Organization [facility] Address [address] [place] [id number] Care Team Providers Care Bus Steward Name Role Phone Rod Paz Primary Care Provider UnavailJuan Gaxiola [phone] REASON FOR VISIT Patient presents today for a colon screening Encounters Encounter Location Date Provider Diagnosis [facility] [address] [place] [id number] 01/06/2024 Juan Stone Plan Of Treatment No Information Progress Notes * NILA PATINODOB: [birth year] (59 yo M)Acc No.[id number]:01/06/2024 Progress Notes Patient: NILA AMEZCUA Provider: Georgina Stone MD :[id number] A ge:58 Y S ex:Male Date:01/06/2024 Address:[address] [place], [place] [id number] Pcp:Rod Paz Subjective: * Chief Complaints: * 1 . Patient presents today for a colon screening. * Medical History: Objective: * Vitals: Assessment: Plan: * Treatment: * * The named appointment provid er may or may not be the originator of this progress note, and it is not deemed complete until electronically signed by the appointment provider. Sign off status: Pending * Provider: Georgina Stone MD Date: 0 01/06/2024 Generated for Sravani ng/Fakamalag/eTransmitting on: 05/03/2025 03:17 PM EDT
[2025-05-03 14:54] VITALS: BP 164/120; PULSE 102; TEMP 36.4; O2SAT 97; BMI 31.3
--- NOTE | 2025-05-03 14:54 | A.OFFPC_ITS ---
Vital Signs 05/03/25 14:54 Height 5 ft 6 in Weight 194 lb 4 oz BMI 31.3 BP 164/120 H Blood Pressure Location Lt brachial Position Sitting Pulse 102 H Pulse Source Pulse Oximeter Temp 97.5 F Temp Source Temporal Artery Scan Pulse Oximetry (%) 97 Oxygen Delivery Method Room Air Intake Visit Reasons: follow up Drilling Fluids Specialist Required: No Accompanied by: Self / Same As Patient Allergies lisinopril Adverse Reaction (Intermediate, Verified 05/03/25 15:16) Sweating Medication List - Last Reconciled 05/03/25 by Rod Paz PA-C acetaminophen ER 650 mg PO Q12H 15 days amlodipine 10 mg PO DAILY 90 days atorvastatin 20 mg PO DAILY 90 days blood pressure test kit-large As directed bupropion HCl XL (Wellbutrin XL) 150 mg PO QAM 30 days hydroxyzine HCl 25 - 50 mg PO BID PRN ibuprofen 800 mg PO TID PRN losartan-hydrochlorothiazide 100-25 mg 1 tab PO DAILY 90 days melatonin 5 mg PO BEDTIME PRN trazodone 100 mg PO DAILY triamcinolone acetonide 0.5% 1 appl topical DAILY 30 days Tobacco use date assessed: 05/03/25 Dental Screening Dental Screen Date: 05/03/25 Did you have a dental visit in the last 12 months?: Yes Did you have a dental problem in the last 6 months where you did not have access to dental care?: No Was dental information given to patient?: Patient has dentist HPI follow up HPI Details Patient is a 59-year-old male here today for follow-up visit. Patient has a past medical history significant for hypertension, psoriasis, obesity, anxiety and hyperlipidemia. osteoarthritis of the knees. Has severe left knee osteoarthritis with varus deformity. Has been getting cortisone injections in his knees. Unfortunately he has missed follow up appointments with his Orthopedics due to his alcohol use. Because of his knee pain he has been having lot of low back pain and he is asking for muscle relaxer continues to help his pain.. He is planning on trying to get back in to his orthopedic to do total knee arthroplasty in the late fall 2024. . Recovering alcoholic: The patient reports a history of alcohol use disorder, with a recent relapse [place] thai to a month-long treatment at [facility]. The relapse was attributed to stress and anxiety related to financial concerns and knee pain. .. Hypertension: Patient was recently in alcohol rehab and noted that clonidine was controlling his blood pressure much better. He has stopped using amlodipine and lisinopril . Today's blood pressure very elevated PLAN will start clonidine 0.2 t.i.d. as it was helping him with his blood pressure in the past. Will consider restarting lisinopril. /.. .. Hyperlipidemia: Most recent lipid panel improved. She continues on atorvastatin 20 mg PFSH Surgical History History of orthopedic surgery Family History Father No problems noted. Mother No problems noted. 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 1. Little interest or pleasure in doing things: not at all 2. Feeling down, depressed, or hopeless: several days 3. Trouble falling or staying asleep, or sleeping too much: not at all 4. Feeling tired or having little energy: several days 5. Poor appetite or overeating: not at all 6. Feeling bad about yourself - or that you are a failure or have let yourself or your family down: not at all 7. Trouble concentrating on things, such as reading the newspaper or watching television: not at all 8. Moving or speaking so slowly that other people could have noticed. Or the opposite - being so fidgety or restless that you have been moving around a lot more than usual: not at all 9. Thoughts that you would be better off or of hurting yourself in some way: not at all Total score: 2 97464 - PHQ-9 Billing: Yes Source: Developed by Drs. Juan Choudhary, Roland De La Torre and colleagues, with an educational doreen from [employer]. Thrive Questionnaire Date Thrive assessed: 05/03/25 I am a: Patient What is your living situation today?: I have a steady place to live Within the past 12 months, did the food you bought not last and you didn't have the money to get more?: I choose not to answer this question Within the past 12 months, did you worry whether your food would run out before you got money to buy more?: I choose not to answer this question Do you have trouble paying for medicines?: No Do you have trouble getting transportation to medical appointments?: No Do you have trouble paying your heating and electricity bill?: No Do you have trouble taking care of your child, family member or friend?: No Do you have trouble with day-to-day activities such as bathing, preparing meals, shopping, managing finances, etc.?: Yes Are you currently unemployed and looking for a job?: Yes Are you interested in more education?: No Please select the resources that you would like help with: None Currently or been in a relationship where the following occur: No concerns reported THRIVE Score: 0 AUDIT C Alcohol Use Questionnaire (AUDIT-C) 1. How often do you have a drink containing alcohol?: Never 3. How often do you have six or more drinks on one occasion?: Never Total Score: 0 CHITO-7 AMB Questionnaire CHITO-7 Date CHITO - 7 assessed: 05/03/25 Feeling nervous, anxious, or on edge: 1 = Several days Not being able to stop or control worryin = Several days Worrying too much about different things: 1 = Several days Trouble relaxin = Not at all Being so restless that it is hard to sit still: 0 = Not at all Becoming easily annoyed or irritable: 0 = Not at all Feeling afraid as if something awful might happen: 0 = Not at all Total CHITO-7 score (0-4 normal; 5-9 mild; 10-14 moderate; 15-21 severe): 3 Source: Developed by Cynthia Tellez Kurt Kroenke and colleagues, with an educational doreen from [employer]. CHITO-7 Assessment Billing CHITO-7 Assessment Tool: CHITO-7 Assessment 29230 Review of Systems Const Denies headache(s) Eyes Denies loss of vision ENT Denies vertigo, Denies dizziness, Denies headache(s) and Denies sore throat Card Denies chest pain, Denies leg edema and Denies lightheadedness Resp Denies cough, Denies hemoptysis and Denies wheezing GI Denies abdominal pain, Denies melena, Denies constipation, Denies diarrhea and Denies vomiting Denies dysuria, Denies urinary frequency and Denies urinary urgency Musc Denies arthralgias, Denies joint swelling, Denies numbness and Denies tingling Neuro Denies Abnormal speech present, Denies behavioral changes, Denies vertigo, Denies dizziness, Denies headache(s), Denies loss of vision, Denies memory loss, Denies numbness and Denies tingling Psych Denies anxiety, Denies behavioral changes, Denies depression, Denies memory loss and Denies panic attacks Tho/Lymph Denies easy bleeding and Denies easy bruising Aller/Immun Denies wheezing Physical exam (Primary Care) Vital Signs: Last Vital Signs Temp 97.5 F 05/03/25 14:54 Pulse 102 H 05/03/25 14:54 BP 164/120 H 05/03/25 14:54 Pulse Ox 97 05/03/25 14:54 Oxygen Delivery Method Room Air 05/03/25 14:54 BMI result Body Mass Index 31.3 BMI Assessment/Plan discussion: High BMI High, discussed plan: lifestyle, weight reduction, dietary and physical activity Tobacco/Smoking Status: Tobacco use Status Tobacco use date assessed 05/03/25 05/03/25 15:00 Patient Tobacco Use Status Former Tobacco user 05/03/25 14:54 Tobacco use type Cigarette 05/03/25 14:54 e-Cigarette/Vaping Use Never Used 05/03/25 14:54 PHQ-9: PHQ-9 Score PHQ-9: Total score 2 05/03/25 15:18 Thrive Assessment: Date of Thrive Assessment Date Thrive assessed 05/03/25 05/03/25 15:00 Currently or been in a relationship where the following occur: No concerns reported Const General: healthy appearing, no acute distress, alert and awake Nutritional Appearance: well nourished Orientation/consciousness: oriented to person, oriented to place and oriented to time HENMT Ears: TM's normal bilaterally General nose exam: Normal nasal mucous membranes and turbinates present Eyes Conjunctivae: conjunctivae normal Sclerae: sclerae normal Pupils: Equal, round and reactive pupils present Neck Neck: Yes no lymphadenopathy and Yes no JVD Thyroid: Thyroid normal Carotids: no bruits Resp Effort & Inspection: normal respiratory effort and not tachypneic Auscultation: no crackles, no rales, no rhonchi and no wheezes Cardio Rate: regular rate Rhythm: regular rhythm Heart sounds: no murmurs and normal S1 and S2 GI Palpation (GI): Soft to palpation, nontender, no hepatomegaly and no splenomega ly Auscultation: normal bowel sounds Skin General skin exam: no rashes or lesions noted and dry skin Neuro General: oriented to person, oriented to place and oriented to time Cranial nerves: Yes Equal, round and reactive pupils present Speech: No Abnormal speech present Gait exam (Neuro): Normal gait present Motor exam (neuro): no tremor noted Extrem Other: LEFT KNEE: OBVIOUS VARUS DEFORMITY, LIVING IN RANGE OF MOTION DUE TO PAIN AND STIFFNESS Right upper extremity: full ROM Left upper extremity: full ROM Right lower extremity: full ROM; no edema Left lower extremity: full ROM; no edema Psych Mental Status: mental status grossly normal Speech and movement: Normal speech and movement present Affect: normal affect Attitude: cooperative Thought process: Normal thought process present Coding Level of Care Code Est Pt Level 4 (99537) Diagnoses Mixed hyperlipidemia E78.2 Hyperlipidemia type: mixed hyperlipidemia Essential hypertension I10 Hypertension type: essential hypertension Primary osteoarthritis of both knees M17.0 Laterality: bilateral Osteoarthritis type: primary Primary insomnia F51.01 Insomnia type: primary BPH associated with nocturia N40.1; R35.1 Recovering alcoholic F10.21 Additional Codes CHITO-7 Assessment Billing - CHITO-7 Assessment Tool: CHITO-7 Assessment 22184 ([id number]) PHQ-9 - 86905 - PHQ-9 Billing: Yes ([id number]) Assessment & Plan Assessment & Plan (1) HLD (hyperlipidemia): Code(s): E78.5 - Hyperlipidemia, unspecified Category: Medical Qualifiers: Hyperlipidemia type: mixed hyperlipidemia Qualified Code(s): E78.2 - Mixed hyperlipidemia Plan: Patient continues on atorvastatin 20 mg, will get repeat fasting lipid panel to ensure stable. Goal LDL is to be below 130 (2) HTN (hypertension): Code(s): I10 - Essential (primary) hypertension Category: Medical Qualifiers: Hypertension type: essential hypertension Qualified Code(s): I10 - Essential (primary) hypertension Plan: Patient's blood pressure elevated today in office. He reports will being in acute alcohol rehab he was on clonidine and reports his blood pressures are much better. He has stopped using lisinopril and amlodipine. He is interested in using clonidine for his blood pressure. Goal blood pressure to be below 140/90 Will supply patient with a paper script for blood pressure cuff to do home blood pressure monitoring (3) Knee osteoarthritis: Code(s): M17.10 - Unilateral primary osteoarthritis, unspecified knee Category: Medical Qualifiers: Laterality: bilateral Osteoarthritis type: primary Qualified Code(s): M17.0 - Bilateral primary osteoarthritis of knee Plan: Patient has severe left knee osteoarthritis, he is due for a total knee replacement in his trying to gather up enough time to be off of work to do this. (4) Insomnia: Code(s): G47.00 - Insomnia, unspecified Category: Medical Qualifiers: Insomnia type: primary Qualified Code(s): F51.01 - Primary insomnia Plan: Patient reports he has been having difficulty sleeping even with the use of 100 mg trazodone, he is interested in increasing his dose of trazodone at 150 mg at night. (5) BPH associated with nocturia: Code(s): N40.1 - Benign prostatic hyperplasia with lower urinary tract symptoms; R35.1 - Nocturia Category: Medical Plan: Patient does report a lot nocturia, PSAs has been stable though symptoms are consistent with BPH. Will supply patient with tamsulosin to use on an as needed basis (6) Recovering alcoholic: Code(s): F10.21 - Alcohol dependence, in remission Category: Social Hx Plan: The patient completed a 28-day rehabilitation program at [facility] and is encouraged to continue attending support meetings to maintain sobriety. Orders: Orders Complete Blood Count no Diff 05/03/25 I10 - Essential (primary) hypertension Microalbumin, Random (w Creat) 05/03/25 I10 - Essential (primary) hypertension Lipid Panel 05/03/25 E78.2 - Mixed hyperlipidemia Comprehensive [place]. Panel Fast 05/03/25 I10 - Essential (primary) hypertension Prostate Specific Antigen Scr 05/03/25 I10 - Essential (primary) hypertension, Z12.5 - Encounter for screening for malignant neoplasm of prostate Medications: New trazodone 150 mg PO BEDTIME 30 tabs 3RF sleep 30 days F51.01 - Primary insomnia clonidine HCl 0.2 mg PO TID 90 tabs 2RF 30 days I10 - Essential (primary) hypertension cyclobenzaprine 10 mg PO ONCE PRN 30 tabs 1RF muscle spasm 30 days M17.12 - Unilateral primary osteoarthritis, left knee tamsulosin 0.4 mg PO DAILY 30 caps 1RF 30 days N40.1 - Benign prostatic hyperplasia with lower urinary tract symptoms, R35.1 - Nocturia Refilled blood pressure test kit-large As directed 1 ea 0RF I10 - Essential (primary) hypertension
== END 2025-05-03 15:34 | disposition home or self-care (01) ==
LOC: HO.HMCH 14:51
PROVIDERS: PCP Physician Assistant; Visit Provider Physician Assistant
DX: E78.2 Mixed hyperlipidemia (principal); F10.21 Alcohol dependence, in remission; I10 Essential (primary) hypertension; M17.0 Bilateral primary osteoarthritis of knee; F51.01 Primary insomnia; N40.1 Benign prostatic hyperplasia with lower urinary tract symptoms; R35.1 Nocturia

== ENCOUNTER → 2025-05-03 14:50 | Outpatient (BNVA) | payer BC, SELFPAY | PROVIDERS: PCP Physician Assistant; Visit Provider Physician Assistant | DX: E78.2 Mixed hyperlipidemia (principal); I10 Essential (primary) hypertension; M17.0 Bilateral primary osteoarthritis of knee; F51.01 Primary insomnia; N40.1 Benign prostatic hyperplasia with lower urinary tract symptoms; R35.1 Nocturia; F10.21 Alcohol dependence, in remission; Z79.899 Other long term (current) drug therapy; Z13.30 Encounter for screening examination for mental health and behavioral disorders, unspecified | CPT/HCPCS: 96127 ==

== ENCOUNTER 2025-10-17 15:32 | Outpatient (AMB) | payer SELFPAY ==
--- NOTE | 2025-10-17 16:16 | A.OFFPC_ITS ---
Vital Signs 10/17/25 16:18 Height 5 ft 6 in Weight 178 lb 6 oz BMI 28.8 BP 152/92 H Blood Pressure Location Lt brachial Position Sitting Pulse 98 Pulse Source Pulse Oximeter Temp 97.5 F Temp Source Temporal Artery Scan Pulse Oximetry (%) 98 Oxygen Delivery Method Room Air Intake Visit Reasons: follow up Intake Note: Patient is here to follow up on HTN, HLD. 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 Intern: Present Accompanied by: Sister Allergies lisinopril Adverse Reaction (Intermediate, Verified 10/17/25 16:39) Sweating Medication List - Last Reconciled 10/17/25 by Rod Paz PA-C acamprosate 666 mg PO TID acetaminophen ER 650 mg PO Q12H 15 days amlodipine 10 mg PO DAILY 90 days atorvastatin 20 mg PO DAILY 90 days blood pressure test kit-large As directed bupropion HCl XL (Wellbutrin XL) 150 mg PO QAM 30 days clonidine HCl 0.2 mg PO TID 30 days cyclobenzaprine 10 mg PO ONCE PRN 30 days hydroxyzine HCl 25 - 50 mg PO BID PRN ibuprofen 800 mg PO TID PRN losartan-hydrochlorothiazide 100-25 mg 1 tab PO DAILY 90 days melatonin 5 mg PO BEDTIME PRN tamsulosin 0.4 mg PO DAILY 30 days trazodone 150 mg PO BEDTIME 30 days triamcinolone acetonide 0.5% 1 appl topical DAILY 30 days Tobacco use date assessed: 10/17/25 Dental Screening Dental Screen Date: 05/03/25 HPI follow up HPI Details Patient is a 60-year-old male here today for follow-up visit. Patient has a past medical history significant for hypertension, psoriasis, obesity, anxiety and hyperlipidemia. ----> Today he does bring in [employer] paperwo for financial assistance. He is financially struggling at this time as he is not able to work. He does not have insurance at this time thus paying [id number] for today's visit. He does have severe osteoarthritis in his knees, alcohol use disorder and hypertension all chronically. Signed DTI paperwork osteoarthritis of the knees. Has severe left knee osteoarthritis with varus deformity. Has been getting cortisone injections in his knees. Unfortunately he has missed follow up appointments with his Orthopedics due to his alcohol use. He has been told by orthopedics he needs replacements though at this time he does not have insurance and he is trying to get some sobriety . He continues to have a lot of pain which is 1 of the triggers for him relapsing into drinking alcohol again. He is interested in trying something to help him with his pain. . Recovering alcoholic: The patient reports a history of alcohol use disorder, with a recent relapse leading to a month-long treatment at [facility]. The relapse was attributed to stress and anxiety related to financial concerns and knee pain. He is now using Campral for alcohol cravings. .. Hypertension: Patient was recently in alcohol rehab and noted that clonidine was controlling his blood pressure much better. He has stopped using amlodipine and lisinopril . Today's blood pressure very elevated PLAN will start clonidine 0.2 t.i.d. as it was helping him with his blood pressure in the past. Will consider restarting lisinopril. /.. .. Hyperlipidemia: Most recent lipid panel improved. She continues on atorvastatin 20 mg PFSH Surgical History History of orthopedic surgery Family History Father No problems noted. Mother No problems noted. 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 Cognitive needs: Yes (Cane, walker) Hearing needs: Yes Vision needs: Yes (reading glasses) Questionnaire Thrive Questionnaire Date Thrive assessed: 05/03/25 I am a: Patient What is your living situation today?: I have a steady place to live Within the past 12 months, did the food you bought not last and you didn't have the money to get more?: I choose not to answer this question Within the past 12 months, did you worry whether your food would run out before you got money to buy more?: I choose not to answer this question Do you have trouble paying for medicines?: No Do you have trouble getting transportation to medical appointments?: No Do you have trouble paying your heating and electricity bill?: No Do you have trouble taking care of your child, family member or friend?: No Do you have trouble with day-to-day activities such as bathing, preparing meals, shopping, managing finances, etc.?: Yes Are you currently unemployed and looking for a job?: Yes Are you interested in more education?: No Currently or been in a relationship where the following occur: No concerns reported THRIVE Score: 0 CHITO-7 AMB Questionnaire CHITO-7 Date CHITO - 7 assessed: 05/03/25 Source: Developed by Drs. Juan Choudhary, Cynthia Huber, Roland Vega and colleagues, with an educational doreen from [employer]. Review of Systems Const Denies headache(s) Eyes Denies loss of vision ENT Denies vertigo, Denies dizziness, Denies headache(s) and Denies sore throat Card Denies chest pain, Denies leg edema and Denies lightheadedness Resp Denies cough, Denies hemoptysis and Denies wheezing GI Denies abdominal pain, Denies melena, Denies constipation, Denies diarrhea and Denies vomiting Denies dysuria, Denies urinary frequency and Denies urinary urgency Musc Denies arthralgias, Denies joint swelling, Denies numbness and Denies tingling Neuro Denies Abnormal speech present, Denies behavioral changes, Denies vertigo, Denies dizziness, Denies headache(s), Denies loss of vision, Denies memory loss, Denies numbness and Denies tingling Psych Denies anxiety, Denies behavioral changes, Denies depression, Denies memory loss and Denies panic attacks Tho/Lymph Denies easy bleeding and Denies easy bruising Aller/Immun Denies wheezing Physical exam (Primary Care) Vital Signs: Last Vital Signs Temp 97.5 F 10/17/25 16:18 Pulse 98 10/17/25 16:18 BP 152/92 H 10/17/25 16:18 Pulse Ox 98 10/17/25 16:18 Oxygen Delivery Method Room Air 10/17/25 16:18 BMI result Body Mass Index 28.8 Tobacco/Smoking Status: Tobacco use Status Tobacco use date assessed 10/17/25 10/17/25 16:24 Patient Tobacco Use Status Former Tobacco user 10/17/25 16:24 Tobacco use type Cigarette 10/17/25 16:24 e-Cigarette/Vaping Use Never Used 10/17/25 16:24 Thrive Assessment: Date of Thrive Assessment Date Thrive assessed 05/03/25 10/17/25 16:24 Currently or been in a relationship where the following occur: No concerns reported Const General: healthy appearing, no acute distress, alert and awake Nutritional Appearance: well nourished Orientation/consciousness: oriented to person, oriented to place and oriented to time HENMT Ears: TM's normal bilaterally General nose exam: Normal nasal mucous membranes and turbinates present Eyes Conjunctivae: conjunctivae normal Sclerae: sclerae normal Pupils: Equal, round and reactive pupils present Neck Neck: Yes no lymphadenopathy and Yes no JVD Thyroid: Thyroid normal Carotids: no bruits Resp Effort & Inspection: normal respiratory effort and not tachypneic Auscultation: no crackles, no rales, no rhonchi and no wheezes Cardio Rate: regular rate Rhythm: regular rhythm Heart sounds: no murmurs and normal S1 and S2 GI Palpation (GI): Soft to palpation, nontender, no hepatomegaly and no splenomegaly Auscultation: normal bowel sounds Back/Spine/Pelvis Other: AMBULATING WITH A CANE Skin General skin exam: no rashes or lesions noted and dry skin Neuro General: oriented to person, oriented to place and oriented to time Cranial nerves: Yes Equal, round and reactive pupils present Speech: No Abnormal speech present Gait exam (Neuro): Normal gait present Motor exam (neuro): no tremor noted Extrem Other: LIMITED RANGE OF MOTION OF BILATERAL KNEES DUE TO PAIN AND STIFFNESS Right upper extremity: full ROM Left upper extremity: full ROM Right lower extremity: full ROM; no edema Left lower extremity: full ROM; no edema Psych Mental Status: mental status grossly normal Speech and movement: Normal speech and movement present Affect: normal affect Attitude: cooperative Thought process: Normal thought process present Coding Level of Care Code Est Pt Level 4 (73832) Diagnoses Recovering alcoholic F10.21 Primary osteoarthritis of right knee M17.11 Osteoarthritis type: primary Mixed hyperlipidemia E78.2 Hyperlipidemia type: mixed hyperlipidemia Essential hypertension I10 Hypertension type: essential hypertension Assessment & Plan Assessment & Plan (1) Recovering alcoholic: Code(s): F10.21 - Alcohol dependence, in remission Category: Social Hx Plan: Patient has had suffered a relapse this year, he has been struggling to stay sober due to stress and financial issues. Currently on [facility] He is applying for financial assistance thus brings in paperwork to fill out today due to his chronic medical conditions. (2) Osteoarthritis of right knee: Code(s): M17.11 - Unilateral primary osteoarthritis, right knee Category: Medical Qualifiers: Osteoarthritis type: primary Qualified Code(s): M17.11 - Unilateral primary osteoarthritis, right knee Plan: Has severe osteoarthritis in both knees, he has been in contact with the orthopedic surgeon and is due for replacement though was awaiting to get insurance back. Also has an issue with alcohol in his trying to get sobriety under his belt. He continues to use ibuprofen in NSAIDs for his pain that do not supply him with much pain relief. He willing to try gabapentin to help with nerve related pain in his knees. Will try to stay away from opiates. (3) HLD (hyperlipidemia): Code(s): E78.5 - Hyperlipidemia, unspecified Category: Medical Qualifiers: Hyperlipidemia type: mixed hyperlipidemia Qualified Code(s): E78.2 - Mixed hyperlipidemia Plan: Patient continues on atorvastatin 20 mg, will get repeat fasting lipid panel to ensure stable. Goal LDL is to be below 130 (4) HTN (hypertension): Code(s): I10 - Essential (primary) hypertension Category: Medical Qualifiers: Hypertension type: essential hypertension Qualified Code(s): I10 - Essential (primary) hypertension Plan: Patient's blood pressure elevated today in office. He reports will being in acute alcohol rehab he was on clonidine and reports his blood pressures are much better. He has stopped using lisinopril and amlodipine. He is interested in using clonidine for his blood pressure. Goal blood pressure to be below 140/90 Will supply patient with a paper script for blood pressure cuff to do home blood pressure monitoring Medications: New gabapentin 300 mg PO BID 30 caps 0RF 15 days M17.11 - Unilateral primary osteoarthritis, right knee
[2025-10-17 16:18] VITALS: BP 152/92; PULSE 98; TEMP 36.4; O2SAT 98; BMI 28.8
--- OUTSIDE RECORDS SUMMARY | 2025-10-17 16:39 | XMS_ITS | Clinical Summary ---
Author Organization [facility] Address [address] [place] [address] Phone Care Team Providers Care Sheet Metal Insulator Name Role Phone Rod Paz Primary Care Provider + Allergies No known active allergies Medications traZODone (DESYREL) 100 MG tablet Take 100 mg by mouth nightly at bedtime. Active lisinopril (PRINIVIL,ZESTR IL) 10 MG tablet Take 10 mg by mouth daily. Active buPROPion (WELLBUTRIN XL) 150 MG ER 24 hr tablet Take 150 mg by mouth daily. Active Social History Tobacco Use Types Packs/Day Years Used Date Smoking Tobacco: Never Smokeless Tobacco: Never Alcohol Use Standard Drinks/Week Comments Not Currently 0 (1 standard drink = 0.6 oz pur e alcohol) Education Answer Date Recorded Are you interested in more education? Not on marco e 02/20/2023 Are you concerned about learning? Not on file 02/20/2023 No 02/20/2023 No 02/20/2023 Food Answer Date Recorded Within the past 6 months we worried whether our food would run out before we got money to buy more. I choose not to answer 05/24/2025 Within the past 6 months the food we bought just didn't last and we didn't have enough money to get more. I choose not to answer 05/24/2025 Residential Stability Answer Date Recor ded What is your housing situation today? I choose n ot to answer 05/24/2025 How many times have you move d in the past 12 months? I choose not to answer 05/24/2025 Paying for Meds Answer Date Recorded Do you have trouble paying for medicines? I lalo se not to answer 05/24/2025 Paying Utility Bills Answer Date Record ed Do you have trouble paying y our heating or electricity bill? I choose not to answer 05/24/2025 Transportation Answer Date Recorded Has the lack of transportati on kept you from medical appointments or from getting medications? I choose not to answer 05/24/2025 Digital Access Answer Date Recorded No 05/24/2025 No 05/24/2025 Do you have reliable internet access at home? I choose not to answer 05/24/2025 Do you have a device (e.g., phone, tablet, computer) with a working camera? I choose not to answer 05/24/2025 Intimate Partner Violence Answer Date R ecorded Are you denied basic needs s uch as food, clothing, or medical care? No 05/24/2025 In the past 12 months have y ou been in a relationship with a person who hurts, threatens, or tries to control you? No 05/24/2025 Are you denied basic needs s uch as food, clothing, or medical care? No 05/24/2025 In the past 12 months have y ou been in a relationship with a person who hurts, threatens, or tries to control you? No 05/24/2025 Sex and Gender Information Value Date Recorded Sex Assigned at Male 06/12/2020 11:35 AM EDT Legal Sex Male 9:44 PM EDT Gender Identity Not on file Sexual Orientation Not on file Last Filed Vital Signs Vital Sign Reading Time Taken Comments Blood Pressure 140/83 05/24/2025 6:39 PM EDT Pulse 92 05/24/2025 6:39 PM EDT Temperature 36.4 C (97.6 F) 05/24/2025 6:39 PM EDT Respiratory Rate 18 05/24/2025 6:39 PM EDT Oxygen Saturation 97% 05/24/2025 6:39 PM EDT Inhaled Oxygen Concentration - - Weight 89.1 kg (196 lb 6.4 oz) 05/24/2025 12:06 PM EDT Height 167.6 cm (5' 6 ) 05/24/2025 12:06 PM EDT Body Mass Index 31.7 05/24/2025 12:06 PM EDT Plan of Treatment Not on file Medical Devices Not on file Insurance [facility] Care Teams Sheet Metal Insulator Relationship Specialty Start Date End Date Rod Paz PA [address] [place] [address] PCP - General 06/12/20 Additional Source Comments The information contained in this document represents components of the legal health record. It is not the complete legal health record.[facility]
--- OUTSIDE RECORDS SUMMARY | 2025-10-17 16:39 | XMS_ITS | Patient Health Record ---
Author Organization [facility] Address [address] [place] [address] Care Team Providers Care Stand Up Forklift Operator Name Role Phone Rod Paz Primary Care Provider Unavailab Juan Guzman Unavailable [phone] Reason For Referral No Information Medications Medication SIG (Take, Route, Frequency, Duration) Notes Start Date End Date Status Suprep Bowel Prep 1 kit Solution as directed Orally as directed; Duration: 1 dose 10/31/2015 Activ e CeleXA 10 MG Tablet 2 tablets Orally Onc e a day Active Lisinopril 5 MG Tablet 1 tablet Orally Once a day Active traZODone HCl 100 MG Tablet 1 tablet at bedtime Orally Once a day Active Social History Social History Additional Details Category Social Info Options Details Miscellaneous: Marital status: single Occupation: [employer] Section Notes: Recovering alcoholic since ; nonsmoker Problems Problem Type SNOMED Code ICD Code Onset Dates Problem Status W/U Status Risk Notes Problem Screening for malignant neoplasm of colon (082450597) Encounter for screening for malignant neoplasm of colon (Z12.11) Active confirmed Problem Screening for malignant neoplasm of rectum (076430077) Encounter for screening for malignant neoplasm of rectum (Z12.12) Active confirmed Problem Preprocedural examination (851907230108610) Preprocedural examination (Z01.818) Active confirmed Plan Of Treatment Future Test Test Name Order Date COLONOSCOPY 10/31/2015 Insurance Providers Payer Name Payer Address Payer Phone Subscriber Number Group Number Insured Name Patient Relationship to Insured Coverage Start Date Coverage End Date [facility] [address] [place] [address] [id number] NILA PATINO Self - patient is the insured Medical (General) History Medical History History ICD Code Denies AK,DM,CVA,Lung disease,renal dise ase Hypertension Panic attacks/anxiety EtOH abuse--he denies any history of hep atitis or jaundice Surgical History Surgery Date(Month/Year) Both ACL's Appendectomy Jaw surgery for a congenital defect Right thumb Broken right leg
== END 2025-10-17 17:00 | disposition home or self-care (01) ==
LOC: HO.HMCH 15:33
PROVIDERS: PCP Physician Assistant; Visit Provider Physician Assistant
DX: F10.21 Alcohol dependence, in remission (principal); M17.11 Unilateral primary osteoarthritis, right knee; E78.2 Mixed hyperlipidemia; I10 Essential (primary) hypertension

== ENCOUNTER → 2025-10-17 15:32 | Outpatient (BNVA) | payer SELFPAY | PROVIDERS: PCP Physician Assistant; Visit Provider Physician Assistant | DX: I10 Essential (primary) hypertension (principal); E78.2 Mixed hyperlipidemia; M17.11 Unilateral primary osteoarthritis, right knee; F10.21 Alcohol dependence, in remission; Z79.899 Other long term (current) drug therapy | CPT/HCPCS: 99212 ==